=== PATIENT | female | born 1985 | race African-American/Black ===

== ENCOUNTER 2017-04-02 21:51 | Emergency (ER) | payer OTHER ==
--- NOTE | ~2017-04-02 | CR63 ---
[facility] A Service [facility] RADIOLOGY TEXT RESULTS PATIENT: VALERIE GUTIERREZ LOCATION: SED : [birth year] UNIT #: [id number] AGE: [address]: Ha Bone SEX: F ORDER DR: [id number] [place] [id number] E MR#: [id number] Acc #: [id number] NAME: VALERIE GUTIERREZ : 1985 SEX: F STUDY DATE/TIME: UNIT: SED ROOM: STUDY DESCRIPTION: CR Chest 2 View Attending Physician: Ha Bone P.A.-C. Referring Physician: Ha Bone P.A.-C. Ordering Physician: Ha Bone P.A.-C. Primary Care Physician: Primary Care Physician No MEDICAL IMAGING REPORT This report is preliminary unless electronic signature is present. EXAM Chest x-ray 04/02 23:10 INDICATIONS Cough, fever and body aches for 3-4 days COMPARISON 12/12/2013 FINDINGS PA and lateral examination of the chest upright shows a good expansion of the parenchyma with a normal distribution of the pulmonary vascularity. There is no indication of congestion, effusion, infiltrate, tumor, or nodular density. The pleural reflections and diaphragmatic contours are normal. The cardiac silhouette and mediastinal anatomy is within normal limits. IMPRESSION Normal chest. Dictated by... Willy Gonzalez Jr., M.D. THIS IS AN ELECTRONICALLY VERIFIED REPORT Willy Gonzalez Jr., M.D. at 04/03/2017 9:22 PM RLK/to TD: 04/03/2017 12:52 JOB #: [id number] MEDICAL IMAGING REPORT [facility] A [facility] RADIOLOGY TEXT RESULTS PATIENT: VALERIE GUTIERREZ LOCATION: SED : [birth year] UNIT #: [id number] AGE: [address]: Ha Bone SEX: F ORDER DR: Page 1 of 1
[~2017-04-02 21:51] MED LIST: ACYCLOVIR PO; ALBUTEROL17 GM INH; AMITRYPTYLINE PO; AMOXICILLIN; AMOXICILLIN PO; AUGMENTIN PO; BACTRIM DS TABL1 TA1 PO; BACTRIM DS TABL1 TAB PO; BENADRYL PO; BIRTH CONTROL PILL PO; CLEOCIN PO; COLACE PO; DARVOCET-N 1001 TA1 PO; DIFLUCAN PO; ELIDEL100 GM TOP; ELIMITE60 GM TOP; FLEXERIL10 MG PO; IBUPROFEN PO; LORTAB 10-5001 EACH PO; LORTAB 5/500 TA1 TA1 PO; MEDROL4 MG/DOSE- PO; MIRALAX17 G1 PO; MOTRIN100 MG PO; NASONEX17 GM; NORCO 10/3251 TAB PO; ORTHO TRI-7 DAYS X PO; ORUDIS75 M1 PO; PHENERGAN PO; PREDNISONE PO; RONDEC-DM ORAL30 ML PO; SYMBICORT INH; VICODIN 5/500 T1 TAB PO; VICODIN PO; VISTARIL PO; ZITHROMAX PO; ZITHROMAX1 G/PKT PO
[2017-04-02] MEDS ORDERED: ALBUTEROL17 GM INH (22:00)
[2017-04-02 22:45] LABS: INFLUENZA A NEG (NEG); INFLUENZA B NEG (NEG)
== END 2017-04-03 01:08 | disposition home or self-care (01) ==
LOC: SED 21:51
PROVIDERS: Physician Assistant
DX: J20.9 Acute bronchitis, unspecified (principal); J45.909 Unspecified asthma, uncomplicated; F17.210 Nicotine dependence, cigarettes, uncomplicated; Z91.040 Latex allergy status; Z88.8 Allergy status to other drugs, medicaments and biological substances; Z79.899 Other long term (current) drug therapy
CPT/HCPCS: 71020; 87804; 94640; 99283